=== PATIENT | male | born 1940 | race Caucasian/White ===

== ENCOUNTER 2016-08-22 09:08 | Day surgery (SDC) | payer OTHER ==
[~2016-08-22] VITALS: Ht 175.3 cm; Wt 64.0 kg
[~2016-08-22 09:08] MED LIST: COZAAR25 MG PO; ECONAZOLE NITRA15 GM TP; GRIS-PEG250 MG PO; KENALOG,ARISTOC15 G2 TP; LASIX80 MG PO; LEVEMIR FL100 UNIT/1 SC; LEVOTHYROXINE100 MCG PO; LIPITOR40 MG PO; LOPRESSOR50 MG PO; MIDODRINE HCL5 MG PO; NEPHRO-VITE,1 TABLET PO; NOVOLOG PE100 UNITS/ SC; TOPICORT60 G1 TP; ZETIA10 MG PO
[2016-08-22 09:36] VITALS: BP 137/71
[2016-08-22 09:52] LABS: POINT-OF-CARE METER ID UU14174212
[2016-08-22 09:59] LABS: HEMATOCRIT 38.7 % (38.0-50.0); MCHC 31.3 G/DL (30.0-36.0); MCV 89.6 FL (86-99); MEAN PLAT.VOLUME 10.6 uM^3 (9.0-12.4); PLATELET COUNT 235 K/uL (156-360); RBC DIS.WIDTH-CV 16.4 % (11.8-14.6); RBC DIS.WIDTH-SD 52.7 % (39-53); RED BLOOD COUNT 4.32 M/uL (4.00-5.50); WHITE BLOOD COUNT 6.4 K/uL (4.1-10.2)
[2016-08-22 10:16] LABS: ANION GAP 13 MEQ/L (2-14); CHLORIDE 90 MEQ/L (99-109); POTASSIUM 3.8 MEQ/L (3.7-5.4); SAMPLE HEMOLYSIS CHECK 0; SAMPLE ICTERIC CHECK 0; SAMPLE LIPEMIA CHECK 0; SODIUM 133 MEQ/L (136-147)
[2016-08-22 10:21] LABS: GFR ESTIMATE (CALCULATED) 17 mL/min/; GLUCOSE 229 mg/dL (70-99); UREA NITROGEN (BUN) 49 mg/dL (9-23)
[2016-08-22] MEDS ORDERED: NORCO 5/3251 TABLET PO (13:19)
[2016-08-22 13:39] LABS: POINT-OF-CARE METER ID UU13113675
[2016-08-22 14:23] VITALS: BP 127/67
[2016-08-22 15:30] VITALS: BP 127/72
== END 2016-08-22 15:55 | disposition home or self-care (01) ==
LOC: SDC 09:08
PROVIDERS: Surgery
PROC: 0WHG43Z Insertion of Infusion Device into Peritoneal Cavity, Percutaneous Endoscopic Approach (ICD-10-PCS; principal; 2016-08-22)
DX: I12.0 Hypertensive chronic kidney disease with stage 5 chronic kidney disease or end stage renal disease (principal); E11.22 Type 2 diabetes mellitus with diabetic chronic kidney disease; N18.6 End stage renal disease; Z99.2 Dependence on renal dialysis; E03.9 Hypothyroidism, unspecified; E78.5 Hyperlipidemia, unspecified; Z95.1 Presence of aortocoronary bypass graft; Z82.49 Family history of ischemic heart disease and other diseases of the circulatory system; Z79.4 Long term (current) use of insulin
CPT/HCPCS: 80048; 82948; 85027; C1750; J0690; J1815; J2405; J3010; S0020